=== PATIENT | male | born 1970 | race Caucasian/White ===

== ENCOUNTER 2016-08-23 10:37 | Day surgery (SDC) | payer BC ==
[~2016-08-23 10:37] MED LIST: MORPHINE SULFATE 2 MG/ML DISP.SYRIN IV PRN; MORPHINE SULFATE 4 MG/ML SYRG IV PRN; ONDANSETRON HCL/PF 2 MG/ML VIAL IV PRN; PROMETHAZINE HCL 10 MG in DEXTROSE 5 % IN WATER 50 ML IV PRN; RINGERS SOLUTION,LACTATED 1,000 ML IV PRN; oxyCODONE HCL 5 MG/5 ML UDC PO PRN
--- OUTSIDE RECORDS SUMMARY | 2016-08-23 10:42 | XMS REPORT | Continuity of Care Document ---
:1970 Author Organization [facility] ([facility]) Address [address] [place] [address] Phone [phone] Care Team Providers Name Role Phone PaolaSapphire stillrachna Ceron Primary Care Provider [phone] Source Comments This disclosure is being made pursuant to the Care Everywhere program, applicable federal and state laws, and may not contain all informaitonavailable regarding this patient.[facility] ([facility]) Active Allergies and Adverse Reactions Allergen Noted Date Severity Reactions Comments Penicillins 08/06/2012 Flushing Current Medications Prescription Sig. Disp. Refills Start Date End Date Status fexofenadine (YULI) 60 take 1 tablet daily 10/02/2010 Active mg tablet lansoprazole 30 mg Take 30 mg by mouth 03/01/2016 Active capsule daily. valsartan-hydrochlorothia Take 1 tablet by Active zide 80-12.5 mg per mouth daily. tablet Active Problems Problem Noted Date Precordial pain 03/27/2015 Overview: Formatting of this note may be different from the original. CARDIOVASCULAR PROCEDURES STRESS TESTS: ETT (Equivocal, patient walked 9:11min) - 09/10/2014 CATH Cath: Normal coronary arteriography. TAA 40mm. 09/14/2014 Aortic aneurysm 08/01/2014 Overview: 09/14/2014: CT Chest with contrast 3.8 x 3.9 cm TAA Hypertension 06/01/2013 Penicillin allergy 08/06/2012 Resolved Problems Problem Noted Date Resolved Date Dry cough 08/06/2012 06/01/2013 Flu-like symptoms 08/06/2012 06/01/2013 Most Recent Encounters Date Type Specialty Providers Description 05/30/2016 Telephone Cardiac Rehabilitation Bree Maldonado MD Chief Comp: Results 05/29/2016 Office Visit Cardiac Rehabilitation Default, Other Dx: Thoracic aortic Billg - Defo aneurysm without Kodi, MD Joel Navarro Jr., Linda M, MD Social History Tobacco Use Types Packs/Day Years Used Date Former Smoker Smokeless Tobacco: Never Used Alcohol Use Drinks/Week oz/Week Comments No Last Filed Vital Signs Vital Sign Reading Time Taken Blood Pressure 110/84 05/15/2016 1:54 PM [facility] Pulse 88 05/15/2016 1:54 PM [facility] Temperature 36.1 C (97 F) 12/30/2014 9:37 AM CDT Respiratory Rate 16 12/30/2014 9:37 AM CDT Height 1.854 m (6' 1") 05/15/2016 1:54 PM [facility] Weight 103.874 kg (229 lb) 05/15/2016 1:54 PM [facility] Body Mass Index 30.22 05/15/2016 1:54 PM [facility] Oxygen Saturation 97% 08/06/2012 2:07 AM [facility] Plan of Care Date Type Specialty Providers Description 05/28/2017 Appointment Heart and Vascular Bree Maldonado MD Chief Comp: Patient [address] [place] [address] Visit [phone] (Fax) Health Maintenance Due Date Last Done Comments Hepatitis B Vaccine (1 of 3 - Primary Series) 1970 Tdap Vaccine 10/15/1982 Lipid Disorder Screening 10/15/1989 MMR Vaccine 10/15/1989 Td Vaccine 10/15/1989 Influenza Vaccine: Seasonal (#1) 01/30/2016 Results from Last 3 Months ECHO ADULT - ECHOCARDIOGRAM, TRANSTHORACIC (05/29/2016 10:15 AM) Component Value Range Interpretation Summary TRANSTHORACIC ECHOCARDIOGRAM Technically marginal study. Normal left ventricular size. Normal left ventricular systolic function. The ascending aorta is dilated The ascending aorta measures 4.1cm No aortic regurgitation by color Doppler. There is no pericardial effusion. Patient Height (cm) 185.4 cm Patient Weight (kg) 100.2 kg Systolic Pressure (mmHg) 110 mmHg Diastolic Pressure (mmHg) 84 mmHg BSA (meters^2) 2.2 m^2 Left Ventricle (LV) Normal left ventricular size. Normal LV wall thickness. Normal left ventricular systolic function. LV Ejection Fraction=55% (based on Biplane Method of Discs). Right Ventricle (RV) Normal right ventricular size. Normal right ventricular systolic function. Tricuspid annular plane systolic excursion is normal, measuring 21 mm; which suggests normal RV function.(Normal excursion is 17 mm or greater) Left and Right Atria (LA, RA) Normal LA chamber size. LA ESV index=15 ml/m2. Normal right atrial size. Mitral Valve (MV) Normal mitral valve leaflet morphology Tricuspid Valve (TV) Normal tricuspid valve morphology Aortic Valve (AoV) Trileaflet Aortic valve. No aortic regurgitation by color Doppler. Pulmonic Valve (PV) Pulmonic valve is not visualized Aorta and Pulmonary Artery (Ao, PA) The ascending aorta is dilated The ascending aorta measures 4.1cm The sinotubular junction measures 3.9cm The Sinus of Valsalva measures 3.6cm The aortic annulus measures 2.5cm Pericardium/Pleura There is no pericardial effusion. Procedures IRL Complete 2D with Doppler, Color Flow and image documentation ( [id number]) I personally viewed the echocardiogram and approve the above interpretation Inf. Vena Cava (IVC) / Pulm. Veins A normal IVC diameter which collapses greater than 50% would support an normal RA pressure of 3 mmHg (range 0-5mmHg). Primary ICD-9 Code Aortic aneurysm, thoracic (without mention of rupture) (441.2) IVSd 1.1 cm LVIDd 4.3 cm LVIDs 3.3 cm LVPWd 1.0 cm IVS/LVPW 1.1 Ao root diam 3.8 cm Ao root area 11.3 cm^2 LA dimension 3.3 cm LA/Ao 0.87 LVOT diam 2.5 cm LVOT area 4.9 cm^2 LVAd ap4 29.6 cm^2 EF(MOD-sp4) 59.4 % MV E max lori 54.3 cm/sec MV dec time 0.27 sec Low Range of LVEF 55 High Range of LVEF 55 Reason For Study Thoracic aortic aneurysm without rupture Rn Licensed Practical Madelaine Domingo Interpreting Physician Etienne Salcedo MD electronically signed on 2016-05-29 16:19:44.703
--- OUTSIDE RECORDS SUMMARY | 2016-08-23 10:42 | XMS REPORT | CCD ---
:1970 Author Name GET HALL Address [address] Unavailable [place], [place] [id number] Care Team Providers Name Role Phone KIMO SAMANO Attending Physician Unavailable Vital Signs Unknown or Not Available. Allergies Allergy Code Allergy Type Reaction Status AMOXICILLIN 723 Drug allergy Active Procedures Procedure Code Procedure Type Date CT ABD/PEL WITHOUT [id number] SNOMED CT 04/13/2016 History of Immunizations Unknown or Not Available. Problems Unknown or Not Available. Results Unknown or Not Available. Active Medications Unknown or Not Available. Medications Administered During Visit Unknown or Not Available. Encounters Encounter Diagnosis Diagnosis Code Start Date Hepatomegaly, not elsewhere classified R160 04/13/2016 Social History Smoking Status Code Start Date End Date Former smoker [id number] Patient Decision Aids Unknown or Not Available. Discharge Instructions You were admitted to [facility] on 04/13/2016 13:49 with a principal diagnosis of Hepatomegaly, not elsewhere classified You were discharged from [facility] on 04/13/2016 13:50 Should you have any questions prior to discharge, please contact a member of your healthcare team. If you have left the hospital and have any questions, please contact your primary care physician. Chief Complaint and Reason For Visit Unknown or Not Available. Function Status Unknown or Not Available. Plan of Care Unknown or Not Available. Referral/Transition of Care Unknown or Not Available.
[2016-08-23] MEDS ORDERED: RINGERS SOLUTION,LACTATED 1,000 ML IV ONE ×2 (11:28→12:45)
[2016-08-23] MEDS ORDERED: DEXAMETHASONE SODIUM PHOSP/PF 10 MG/ML VIAL IV ONE (12:29)
[2016-08-23] MEDS ORDERED: BUPIVACAINE HCL 50 ML VIAL IJ ONE (12:29)
[2016-08-23] MEDS ORDERED: RINGERS SOLUTION,LACTATED 1,000 ML IV PRN (13:47)
[2016-08-23 14:27] VITALS: BP 130/82
== END 2016-08-23 10:38 | disposition home or self-care (01) ==
LOC: AMB 10:37
PROVIDERS: ATTEND Allergy & Immunology
PROC: 0CTPXZZ Resection of Tonsils, External Approach (ICD-10-PCS; principal; 2016-08-23 12:20)
DX: J36 Peritonsillar abscess (principal); I10 Essential (primary) hypertension; Z87.891 Personal history of nicotine dependence; Z68.30 Body mass index [BMI] 30.0-30.9, adult